=== PATIENT | male | born 1995 | race Caucasian/White ===

== ENCOUNTER 2019-01-01 14:05 | Emergency (ER) | payer OTHER ==
[2019-01-01 14:49] VITALS: BP 132/84; PULSE 66; RESP 16; TEMP 97.9; O2SAT 98
[2019-01-01] MEDS ORDERED: AMOXICILLIN 250 MG CAP PO ONE (15:07)
[2019-01-01] MEDS ORDERED: TDAP VACCINE 0.5 ML SUS IM ONE ×2 (15:09→15:13)
[2019-01-01] MEDS ORDERED: AMOXICILLIN(FRIDGE) 125/5 ML BOTTLE ONE (15:19)
[2019-01-01] MEDS ORDERED: AMOXICILLIN 125/5 ML BOTTLE ONE (15:20)
== END 2019-01-01 15:38 | disposition home or self-care (01) | DRG 605 ==
LOC: ED 14:05
DX: S61.012A Laceration without foreign body of left thumb without damage to nail, initial encounter (principal); W26.0XXA Contact with knife, initial encounter; Y92.89 Other specified places as the place of occurrence of the external cause
CPT/HCPCS: 90471; 90715; 99282; 99283; A9270-GY